=== PATIENT | female | born 1970 | race Hispanic/Latino ===

== ENCOUNTER 2017-07-02 06:00 | Inpatient (IN) | payer BC ==
[2017-07-01 17:13] LABS: BASOPHILS % (AUTO) 0.9 % (0.0-5.0); EOSINOPHILS % (AUTO) 9.2 % (0.0-8.0); HEMATOCRIT 35.5 % (36-48); LYMPHOCYTES % (AUTO) 41.7 % (21.0-51.0); MEAN CORPUSCULAR HEMOGLOBIN 24.9 pg (27.0-33.0); MEAN CORPUSCULAR HGB CONC 32.2 g/dL (32.0-36.0); MEAN CORPUSCULAR VOLUME 77.5 fL (79-99); MONOCYTES % (AUTO) 8.3 % (3.0-13.0); NEUTROPHILS % (AUTO) 39.9 % (40.0-77.0); PLATELET COUNT (AUTO) 357 K/uL (130-400); RED BLOOD CELL COUNT(AUTO) 4.57 MIL/uL (4.00-5.50); RED CELL DISTRIBUTION WIDTH 16.4 % (11.0-15.5); WHITE BLOOD COUNT (AUTO) 9.1 K/uL (4.8-10.8)
[2017-07-01 17:41] VITALS: BP 112/61
[2017-07-02] VITALS (22 sets, daily range): BP systolic 84–113; BP diastolic 50–90
[~2017-07-02] VITALS: Ht 149.9 cm; Wt 58.8 kg
[2017-07-02] MEDS ORDERED: CALDOLOR 800MG+NS 250ML 250 ML IV ONE (09:16)
[2017-07-02] MEDS ORDERED: LACTATED RINGERS 1000ML 1,000 ML IV ONE (09:16)
[2017-07-02] MEDS: CEFAZOLIN SODIUM 1 GM VIAL ONE ×2 (09:30→14:20)
[2017-07-02] MEDS ORDERED: CITA-107 PO (09:33)
[2017-07-02] MEDS ORDERED: BUPIVACAINE/PF 0.25% 30ML VIAL IJ ONE (12:38)
[2017-07-02] MEDS ORDERED: SULFANILAMIDE 120 GM TUBE VG ONE (13:03)
[2017-07-02] MEDS ORDERED: LIDOCAINE HCL/EPINEPHRINE 50 ML VIAL IJ ONE (13:03)
[2017-07-02] MEDS ORDERED: LIDOCAINE PF 2% 5ML ABBOJECT ONE (14:01)
[2017-07-02] MEDS ORDERED: ROCURONIUM BROMIDE 10MG/1ML 5ML VL ONE (14:01)
[2017-07-02] MEDS ORDERED: PROPOFOL 10 MG/ML 20ML VIAL IV ONE (14:02)
[2017-07-02] MEDS ORDERED: MIDAZOLAM HCL 1 MG/ML 2ML VIAL ONE (14:02)
[2017-07-02] MEDS ORDERED: FENTANYL CITRATE PF 50 MCG/1 ML 5ML AMP IV ONE (14:02)
[2017-07-02] MEDS ORDERED: GLYCOPYRROLATE 0.2 MG/ML 5 ML VIAL ONE (15:57)
[2017-07-02] MEDS ORDERED: NEOSTIGMINE 5MG/5ML SYR IV ONE (15:57)
[2017-07-02] MEDS ORDERED: BISACODYL 10 MG SUPP.RECT RC PRN (16:00)
[2017-07-02] MEDS ORDERED: SIMETHICONE 80 MG TAB.CHEW PO PRN (16:00)
[2017-07-02] MEDS ORDERED: MEPERIDINE-PF 75 MG/ML SYG IM PRN (16:00)
[2017-07-02] MEDS ORDERED: MEPERIDINE-PF 25 MG/ML SYG ONE (16:22)
[2017-07-02] MEDS ORDERED: MEPERIDINE-PF 75 MG/ML SYG ONE (17:58)
[2017-07-02] MEDS: PROMETHAZINE HCL 25 MG/ML 1ML AMPULE IM PRN ×2 (18:10→23:53)
[2017-07-02] MEDS: DEXTROSE 5 %-0.45 % NACL 1,000 ML IV PRN (18:38)
[2017-07-02] MEDS: CEFAZOLIN SODIUM 1 GM VIAL IVP SCH (21:26)
[2017-07-02] MEDS ORDERED: CEFAZOLIN 2GM / 50 ML 50 ML IV SCH (22:00)
[2017-07-02] MEDS: CALDOLOR 800MG+NS 250ML 250 ML IVPB SCH (23:53)
[2017-07-03] MEDS: DEXTROSE 5 %-0.45 % NACL 1,000 ML IV PRN ×2 (00:01→10:59)
[2017-07-03] MEDS: ACETAMINOPHEN-CODEINE 300/30MG TAB PO PRN ×2 (02:29→12:15)
[2017-07-03 04:05] VITALS: BP 87/55
[2017-07-03] MEDS: CEFAZOLIN SODIUM 1 GM VIAL IVP SCH (05:56)
[2017-07-03 06:49] LABS: HEMATOCRIT 28.1 % (36-48); MEAN CORPUSCULAR HEMOGLOBIN 24.4 pg (27.0-33.0); MEAN CORPUSCULAR HGB CONC 31.1 g/dL (32.0-36.0); MEAN CORPUSCULAR VOLUME 78.4 fL (79-99); PLATELET COUNT (AUTO) 265 K/uL (130-400); RED BLOOD CELL COUNT(AUTO) 3.59 MIL/uL (4.00-5.50); RED CELL DISTRIBUTION WIDTH 16.2 % (11.0-15.5); WHITE BLOOD COUNT (AUTO) 12.1 K/uL (4.8-10.8)
[2017-07-03 07:34] VITALS: BP 90/58
[2017-07-03] MEDS: CALDOLOR 800MG+NS 250ML 250 ML IVPB SCH (07:59)
[2017-07-03] MEDS ORDERED: ESTRADIOL 0.1 MG/24 HR PATCH (WEEKLY) TD SCH (11:36)
[2017-07-03 11:51] VITALS: BP 88/54
[2017-07-03 15:34] VITALS: BP 86/51
[2017-07-03] MEDS: IBUPROFEN 800 MG TAB PO SCH ×2 (15:56→23:55)
[2017-07-03 19:25] VITALS: BP 102/57
[2017-07-03] MEDS: DOCUSATE SODIUM 100 MG CAP PO PRN (21:26)
[2017-07-03] MEDS: NITROFURANTOIN MONOHYD/M-CRYST 100 MG CAPSULE PO SCH (21:26)
[2017-07-03 23:55] VITALS: BP 88/50
[2017-07-04 04:02] VITALS: BP 94/61
[2017-07-04] MEDS: ACETAMINOPHEN-CODEINE 300/30MG TAB PO PRN (06:57)
[2017-07-04 07:00] LABS: BASOPHILS % (AUTO) 0.2 % (0.0-5.0); EOSINOPHILS % (AUTO) 13.3 % (0.0-8.0); HEMATOCRIT 26.3 % (36-48); LYMPHOCYTES % (AUTO) 23.2 % (21.0-51.0); MEAN CORPUSCULAR HEMOGLOBIN 26.2 pg (27.0-33.0); MEAN CORPUSCULAR HGB CONC 33.6 g/dL (32.0-36.0); MONOCYTES % (AUTO) 8.7 % (3.0-13.0); NEUTROPHILS % (AUTO) 54.6 % (40.0-77.0); PLATELET COUNT (AUTO) 254 K/uL (130-400); RED BLOOD CELL COUNT(AUTO) 3.37 MIL/uL (4.00-5.50); RED CELL DISTRIBUTION WIDTH 16.3 % (11.0-15.5); WHITE BLOOD COUNT (AUTO) 10.5 K/uL (4.8-10.8)
[2017-07-04 07:45] VITALS: BP 106/60
[2017-07-04] MEDS: NITROFURANTOIN MONOHYD/M-CRYST 100 MG CAPSULE PO SCH (08:06)
[2017-07-04] MEDS: DOCUSATE SODIUM 100 MG CAP PO PRN (08:06)
[2017-07-04] MEDS: IBUPROFEN 800 MG TAB PO SCH (08:08)
== END 2017-07-04 10:35 | disposition home or self-care (01) | DRG 743 ==
LOC: DAHIP 08:21 → EDSTATUS 11:20 → WSH 17:19
PROC: 0UT9FZZ Resection of Uterus, Via Natural or Artificial Opening With Percutaneous Endoscopic Assistance (ICD-10-PCS; 2017-07-02)
PROC: 0UT2FZZ Resection of Bilateral Ovaries, Via Natural or Artificial Opening With Percutaneous Endoscopic Assistance (ICD-10-PCS; principal; 2017-07-02 14:05)
PROC: 0UT7FZZ Resection of Bilateral Fallopian Tubes, Via Natural or Artificial Opening With Percutaneous Endoscopic Assistance (ICD-10-PCS; 2017-07-02 14:05)
DX: N83.209 Unspecified ovarian cyst, unspecified side (principal); F32.9 Major depressive disorder, single episode, unspecified; F41.9 Anxiety disorder, unspecified; Z85.43 Personal history of malignant neoplasm of ovary
CPT/HCPCS: 36415; 84703; 85025; 85027; 86850; 86900; 86901; 88104; 88305; 88309; A4218; A4314; A4344; A4354; J0690; J1741; J2001; J2175; J2250; J2550; J2704; J2710; J3010; J3490; J7120

== ENCOUNTER 2017-07-11 22:25 | Emergency (ER) | payer BC ==
[~2017-07-11 22:25] MED LIST: CITA-107 PO
== END 2017-07-11 23:01 | disposition home or self-care (01) ==
LOC: EDH 22:25
DX: T83.098A Other mechanical complication of other urinary catheter, initial encounter (principal); Z90.710 Acquired absence of both cervix and uterus
CPT/HCPCS: 51702

== ENCOUNTER → 2024-05-03 | Outpatient (CLI) | payer OTHER | END | disposition home or self-care (01) | LOC: RAH 15:51 | PROVIDERS: ATTEND Family Medicine | DX: Z13.6 Encounter for screening for cardiovascular disorders (principal) | CPT/HCPCS: 75571 ==

== ENCOUNTER 2024-09-16 12:57 | Emergency (ER) | payer BC, OTHER ==
[~2024-09-16] VITALS: Ht 149.9 cm; Wt 59.0 kg
--- NOTE | 2024-09-16 13:05 | ERN ---
ED Note History of Present Illness Stated Complaint: UPPER ABD PAIN X 2DAYS Time Seen by MD: 12:59 Dictation: PATIENT IS A 54-YEAR-OLD FEMALE COMING IN TODAY WITH EPIGASTRIC PAIN THAT RADIATES AROUND TO HER FLANK WITH DIARRHEA FOR THE LAST 2-3 DAYS. NO FEVER NO CHILLS. SHE STATES SHE IS ALSO HAVING BURNING URINATION STARTED YESTERDAY. SHE STATES HE TOOK HIM IMODIUM TODAY BUT IT MADE HER ABDOMEN FEEL BLOATED. SHE STAT ES SHE CALLED HER PRIMARY CARE DOCTOR ADVISED HER TO GO TO THE EMERGENCY ROOM. Allergies: Coded Allergies: latex (Unverified Allergy, Severe, ITCHING, 11/17/12) No Known Drug Allergies (Unverified Allergy, Unknown, 07/03/17) Uncoded Allergies: NKDA (Allergy, Unknown, 07/03/17) PATIENT DENIES ANY LATEX ALLERGY Home Meds Reported Medications Citalopram Hydrobromide (Citalopram HBr) 20 Mg Tablet, 20 MG PO HS, TAB 07/02/17 Past Medical History History: Not Applicable RN Note Reviewed/Agreed w/PFSH: Yes Review of System Dictation CONSTITUTIONAL: NEGATIVE EXCEPT FOR HPI HEAD/FACE: NEGATIVE EXCEPT FOR HPI EENT: NEGATIVE EXCEPT FOR HPI RESPIRATORY: NEGATIVE EXCEPT FOR HPI GASTROINTESTINAL/ABDOMINAL: NEGATIVE EXCEPT FOR HPI EPIGASTRIC PAIN THAT RADIATES TO RIGHT FLANK WITH DIARRHEA FOR THREE DAYS/BLOATING GENITOURINARY: NEGATIVE EXCEPT FOR HPI MUSCULOSKELETAL: NEGATIVE EXCEPT FOR HPI INTEGUMENTARY: NEGATIVE EXCEPT FOR HPI NEUROLOGICAL/PSYCH: NEGATIVE EXCEPT FOR HPI HEMATOLOGIC/LYMPHATIC: NEGATIVE EXCEPT FOR HPI ALL SYSTEMS NEGATIVE, EXCEPT NOTED ABOVE. 13 POINT REVIEW OF SYSTEMS ASSESSED AND ALL NEGATIVE EXCEPT FOR ABOVE. Initial Vital Sign VS Vital Signs Date Time Temp Pulse Resp B/P (MAP) Pulse Ox O2 Delivery O2 Flow Rate FiO2 09/16/24 13:24 97.9 56 16 114/82 99 Room Air 0 Physical Exam Dictation VITAL SIGNS REVIEWED GENERAL APPEARANCE: ALERT, ORIENTED X 3, NO ACUTE DISTRESS, WELL DEVELOPED, NOURISHED. HEAD AND FACE: NON-TRAUMATIC. EYES: PERRL, PINK CONJUNCTIVAS, EYELID NO TRAUMA, ANTERIOR CHAMBER WITH ARCUS SENILIS. EARS: PINNAS INTACT AND NO SIGNS OF TRAUMA OR ERYTHEMA EAR CANALS CLEAR AND NO DISCHARGE TM NO ERYTHEMA NOSE: NO DISCHARGE, NO BLEEDING. OROPHARYNX: MOUTH NORMAL, TONGUE PINK, PHARYNX CLEAR,NO ERYTHEMA, TONSILS NO EXUDATES, NO ABSCESSES NOTED, MUCOUS MEMBRANE MOIST NECK: SUPPLE, NON-TENDER, NO THYROMEGALY, NO MASSES, NO JVD, NO BRUITS BREAST:DEFERRED CHEST:NO TENDERNESS, NO CREPITUS, NO PARADOXICAL MOVEMENT, NO RETRACTIONS LUNGS:CLEAR, WELL-VENTILATED, SYMMETRIC, NO RALES, NO WHEEZING, NO RHONCHI, NO STRIDOR, GOOD BREATH SOUNDS BILATERALLY HEART: REGULAR RATE, REGULAR RHYTHM, NO MURMUR, NO GALLOPS VASCULAR: NO PERIPHERAL EDEMA, ABDOMEN: SOFT, POSITIVE BOWEL SOUNDS, NONDISTENDED, NO GUARDING, MODERATE EPIGASTRIC TENDERNESS WITH PALPATION, NO REBOUND, NO MASSES NO HEPATOMEGALY, NO SPLENOMEGALY, NO BURROWS'S SIGN, NO HERNIAS. NEGATIVE CVAT BILATERALLY RECTAL: DEFERRED GENITAL: DEFERRED NEUROLOGICAL: NORMAL SPEECH, MOTOR FUNCTION INTACT, SENSORY FUNCTION INTACT MUSCULOSKELETAL: NECK NONTENDER, FULL RANGE OF MOTION, BACK NONTENDER, FULL RANGE OF MOTION, EXTREMITIES: NONTENDER, FULL RANGE OF MOTION SKIN: COLOR PINK, DRY, NO TURGOR, NO RASH, NO LACERATIONS, NO ABRASIONS, NO CONTUSIONS. LYMPHATIC: DEFERRED Results (Laboratory/Radiology) Laboratory/Radiology Laboratory Tests Test 09/16/24 13:13 09/16/24 13:16 Urine Color YELLOW (YELLOW) Urine Appearance HAZY (CLEAR) Urine pH 6.0 (5.0-8.0) Urine Specific [place] >=1.030 (1.001-1.031) Urine Protein 30 mg/dL (NEGATIVE) H Urine Glucose (UA) NEGATIVE mg/dL (NEGATIVE) Urine Ketones NEGATIVE mg/dL (NEGATIVE) Urine Occult Blood MODERATE (NEGATIVE) H Urine Nitrate NEGATIVE (NEGATIVE) Urine Bilirubin NEGATIVE mg/dL (NEGATIVE) Urine Urobilinogen 0.2 mg/dL (0.2-1.0) Urine Leukocyte Esterase SMALL Porf[place]io/uL (NEGATIVE) H Urine RBC 2-5 /HPF (0-1) H Urine WBC 11-25 /HPF (0-1) H Urine Squamous Epithelial Cells Rare /HPF (0-2) Urine Calcium Oxalate Crystals Rare /LPF (None Seen) H Urine Bacteria Few /HPF (None Seen) White Blood Count 9.6 K/uL (4.8-10.8) Red Blood Count 4.74 MIL/uL (4.00-5.50) Hemoglobin 13.8 g/dL (12.0-16.0) Hematocrit 43.0 % (36-48) Mean Corpuscular Volume 90.7 fL (79-99) Mean Corpuscular Hemoglobin 29.1 pg (27.0-33.0) Mean Corpuscular Hemoglobin Concent 32.1 g/dL (32.0-36.0) Red Cell Distribution Width 12.8 % (11.0-15.5) Platelet Count 344 K/uL (130-400) Mean Platelet Volume 9.7 fL (7.5-10.5) Immature Granulocyte % (Auto) 0.2 % (0-1) Neutrophils (%) (Auto) 45.2 % (40.0-77.0) Lymphocytes (%) (Auto) 41.5 % (21.0-51.0) Monocytes (%) (Auto) 11.5 % (3.0-13.0) Eosinophils (%) (Auto) 0.9 % (0.0-8.0) Basophils (%) (Auto) 0.7 % (0.0-5.0) Neutrophils # (Auto) 4.3 K/uL (1.8-7.7) Lymphocytes # (Auto) 4.0 K/uL (1.0-4.8) Monocytes # (Auto) 1.1 K/uL (0.1-1.0) H Eosinophils # (Auto) 0.09 K/uL (0.00-0.70) Basophils # (Auto) 0.07 K/uL (0.00-0.20) Absolute Immature Granulocyte (auto 0.02 K/uL (0-1) Nucleated Red Blood Cells 0.0 % (0.0-0.19) Sodium Level 134 mmol/L (136-145) L Potassium Level 3.2 mmol/L (3.5-5.1) L Chloride Level 99 mmol/L (101-111) L Carbon Dioxide Level 25 mmol/L (21-32) Blood Urea Nitrogen 16 mg/dL (7-18) Creatinine 0.7 mg/dL (0.5-1.0) Glomerular Filtration Rate Calc 101 mL/min (>90) Random Glucose 113 mg/dL (70-105) H Total Calcium 9.2 mg/dL (8.5-10.1) Lipase 63 U/L (16-77) Signed PATIENT: MANUEL AGUIRRE MR#: [id number] : 1969 SEX: F AGE: 54 LOCATION: [facility] ORDER [id number] STATUS: REG ER REPORT#: [id number] SERVICE 1346 REASON: LEFT FLANK PAIN THAT RADIATES TO LEFT UPPER AND LOWER QUADRANT ORDERING PHYSICIAN: KUSUM PRUITT NP PROCEDURE: ABD PEL WO - CT ABDOMEN/PELVIS W/O CONTRAST CT ABDOMEN/PELVIS W/O CONTRAST HISTORY: Left flank pain COMPARISON: None TECHNIQUE: Multiple sequential axial images of the abdomen and pelvis were obtained from the dome of the diaphragm through symphysis pubis. Patient was not given contrast through intravenous route. Oral contrast was not given. FINDINGS: No pleural effusion is seen bilaterally. There is no evidence of parenchymal disease or pulmonary nodule of the visualized lower lungs. Degenerative changes of the thoracolumbar spine are present. The heart is not enlarged. Postcholecystectomy changes are seen. The liver, spleen, adrenal glands and pancreas are unremarkable. There is no evidence of hydronephrosis bilaterally. 3 mm right renal pelvic stone is seen. There is fluid-filled small bowel loops and colon may be related to enterocolitis. Fecal material is seen in the colon. There are normal size retroperitoneal and mesenteric lymph nodes. No ascites is seen. No CT evidence of acute sinusitis is seen. Pelvic sidewalls are symmetric bilaterally. Bladder is poorly distended. IMPRESSION: 1. 3 mm right renal pelvic stone without hydronephrosis. Fluid-filled small bowel loops and colon may be related to enterocolitis. Labs Reviewed?: Yes ED Course ED Course Orders Procedure Category Date Status Time Cbc With Differential LAB 09/16/24 Complete 13:02 Urinalysis Profile LAB 09/16/24 Complete 13:02 0.9%Nacl 1000ml (Ns PHA 09/16/24 Complete 1000ml) 13:30 Morphine 2mg Syg PHA 09/16/24 Complete (Morphine 2mg Syg) 13:30 Ondansetron 4mg Inj PHA 09/16/24 Complete (Zofran 4mg Inj) 13:30 Lipase LAB 09/16/24 Complete 13:02 Basic Metabolic Panel LAB 09/16/24 Complete 13:02 Potassium Bicarb/Cit PHA 09/16/24 Complete Ac 25meq (K-Lyte Ta 14:00 Culture Urine NUHA 09/16/24 In Process 13:37 Ct Abdomen/Pelvis W/O CT 09/16/24 Resulted Contrast 13:49 Ceftriaxone 1g Vial PHA 09/16/24 Complete (Rocephine 1g Inj) 15:00 Ketorolac PHA 09/16/24 Complete Tromethamine 30mg/Ml 15:00 Current Medications Medications (Trade) Dose Ordered Sig/[place] Route PRN Reason Start Time Stop Time Status Last Admin Dose Admin Ceftriaxone Sodium (ROCEphine 1G INJ) 1 gm ONCE ONCE IVP 09/16/24 15:00 09/16/24 15:01 DC Ketorolac Tromethamine (toRADol) 30 mg ONCE ONCE IVP 09/16/24 15:00 09/16/24 15:01 DC Morphine Sulfate (morPHINE 2MG SYG) 2 mg ONCE ONCE IVP 09/16/24 13:30 09/16/24 13:31 DC 09/16/24 14:04 Ondansetron HCl (zoFRAN 4MG INJ) 4 mg ONCE ONCE IVP 09/16/24 13:30 09/16/24 13:31 DC 09/16/24 14:03 Potassium Bicarbonate (K-Lyte Tablet Eff 25 Meq Tablet.eff) 25 meq ONCE ONCE PO 09/16/24 14:00 09/16/24 14:01 DC 09/16/24 14:03 Sodium Chloride 1,000 ml @ 0 mls/hr ONCE ONCE IV 09/16/24 13:30 09/16/24 13:31 DC 09/16/24 14:03 Vital Signs Date Time Temp Pulse Resp B/P (MAP) Pulse Ox O2 Delivery O2 Flow Rate FiO2 09/16/24 13:24 97.9 56 16 114/82 99 Room Air 0 1532/PATIENT STATES PAIN MARKEDLY REDUCED AFTER TREATMENT. DISCHARGED HOME WITH DIAGNOSIS OF VIRAL GASTROENTERITIS LEFT RENAL STONE, HYPOKALEMIA DEHYDRATION. WE WILL BE TREATED WITH BENTYL AND FLAGYL TOLD TO SEE HER PRIMARY CARE DOCTOR FOR FOLLOW UP. Medical Decision Making MDM MEDICAL DISCHARGE MAKING BASED ON BASIC LABS FOR ABDOMINAL PAIN TO INCLUDE CT BECAUSE OF LEFT FLANK PAIN RADIATING LEFT LOWER QUADRANT PATIENT HAS A ACUTE UTI WITH HEMATURIA HYPOKALEMIA, POTASSIUM REPLACED DEHYDRATION WITH 1 L FLUIDS GIVEN. PATIENT DISCHARGED HOME WITH FLAGYL AND BENTYL TOLD FOLLOW UP WITH HER PRIMARY CARE DOCTOR AND CLEAR LIQUID DIET FOR THE NEXT 18 HOURS. DX & DISP Disposition: Discharge Departure Impression: Primary Impression: Viral gastroenteritis Additional Impressions: Hyponatremia, Hypokalemia, Dehydration, Hyperglycemia, Abdominal cramps, Calculus of left kidney Condition: Stable Scripts Dicyclomine HCl (Bentyl) 20 Mg Tab 20 MG PO Q6HPRN PRN for ABDOMINAL CRAMPING, #20 TAB Prov: KUSUM PRUITT NP 09/16/24 Levofloxacin (Levofloxacin) 500 Mg Tablet 1 TAB PO DAILY for 7 Days, #7 TAB 0 Refills Prov: KUSUM PRUITT NP 09/16/24 Metronidazole (Metronidazole) 500 Mg Tablet 1 TAB PO TID for 7 Days, #21 TAB 0 Refills Prov: KUSUM PRUITT NP 09/16/24 Additional Instructions: FOLLOW-UP WITH PRIMARY CARE PROVIDER IN 1 TO 2 DAYS. TAKE MEDICATIONS DIRECTED HERE IN THE EMERGENCY ROOM. OKAY TO CONTINUE HOME MEDICATIONS UNLESS OTHERWISE DISCUSSED DURING YOUR VISIT IN THE EMERGENCY ROOM TODAY. RETURN TO YOUR NEAREST EMERGENCY ROOM IF SYMPTOMS WORSEN OR IF THERE IS NO IMPROVEMENT. CALL 911 IF YOU NEED IMMEDIATE ASSISTANCE. TAKE TYLENOL OR MOTRIN [id number] NEEDED AND IF NO CONTRAINDICATIONS ARE PRESENT. INCREASE ORAL HYDRATION. A WOUND CULTURE OR URINE CULTURE WAS ORDERED HERE IN THE EMERGENCY ROOM DEPARTMENT PLEASE FOLLOW-UP WITH PRIMARY CARE PROVIDER AND ADVISE THEM TO GET REPEAT PORTS FROM OUR FACILITY. IF YOU HAD ANY SUSY WRAP/SPLINTS THAT WERE APPLIED HERE, PLEASE DO NOT REMOVE THEM UNTIL YOU SEE YOUR PRIMARY CARE OR SPECIALTY. TAKE ANTIBIOTICS DIRECTED UNTIL GONE. TAKE BENTYL DIRECTED FOR CRAMPING. CLEAR LIQUID DIET FOR THE NEXT 18 HOURS AND THEN ADVANCE DIET SLOWLY TO REGULAR STARTING TOMORROW AFTERNOON. FOLLOW UP WITH YOUR PRIMARY CARE DOCTOR IN THE NEXT 1-2 DAYS OR RETURN TO THE EMERGENCY ROOM IF CONDITION GETS WORSE Referrals: RICHAR GUTIERREZ (PCP) Time of Disposition: 15:39 I have reviewed the case, and I agree with, Diagnosis and Plan KUSUM PRUITT NP Sep 16, 2024 13:05
[2024-09-16 13:26] LABS: BASOPHILS # (AUTO) 0.07 K/uL (0.00-0.20); BASOPHILS % (AUTO) 0.7 % (0.0-5.0); EOSINOPHILS # (AUTO) 0.09 K/uL (0.00-0.70); EOSINOPHILS % (AUTO) 0.9 % (0.0-8.0); IMMATURE GRANULOCYTE ABSOLUTE 0.02 K/uL (0-1); LYMPHOCYTES % (AUTO) 41.5 % (21.0-51.0); MEAN CORPUSCULAR HEMOGLOBIN 29.1 pg (27.0-33.0); MEAN CORPUSCULAR HGB CONC 32.1 g/dL (32.0-36.0); MEAN CORPUSCULAR VOLUME 90.7 fL (79-99); MONOCYTES # (AUTO) 1.1 K/uL (0.1-1.0); MONOCYTES % (AUTO) 11.5 % (3.0-13.0); NEUTROPHILS # (AUTO) 4.3 K/uL (1.8-7.7); NEUTROPHILS % (AUTO) 45.2 % (40.0-77.0); PLATELET COUNT (AUTO) 344 K/uL (130-400); RED BLOOD CELL COUNT(AUTO) 4.74 MIL/uL (4.00-5.50); RED CELL DISTRIBUTION WIDTH 12.8 % (11.0-15.5); WHITE BLOOD COUNT (AUTO) 9.6 K/uL (4.8-10.8)
[2024-09-16 13:27] LABS: BILIRUBIN,URINE NEGATIVE (NEGATIVE); COLOR,URINE YELLOW (YELLOW); GLUCOSE, URINE (UA) NEGATIVE (NEGATIVE); KETONES,URINE NEGATIVE (NEGATIVE); LEUKOCYTE ESTERASE ,URINE SMALL Leu/uL (NEGATIVE); NITRATE,URINE NEGATIVE (NEGATIVE); OCCULT BLOOD,URINE MODERATE (NEGATIVE); PROTEIN,URINE 30 mg/dL (NEGATIVE); UROBILINOGEN,URINE 0.2 mg/dL (0.2-1.0)
[2024-09-16 13:30] LABS: ADD UA MICROSCOPIC YES; APPEARANCE,URINE HAZY (CLEAR)
[2024-09-16 13:32] LABS: CREATININE 0.7 mg/dL (0.5-1.0); POTASSIUM 3.2 mmol/L (3.5-5.1)
[2024-09-16 13:33] LABS: CALCIUM OXALATE CRYSTALS,UR Rare /LPF (None Seen)
[2024-09-16 13:34] LABS: BACTERIA,URINE Few /HPF (None Seen)
[2024-09-16 13:36] LABS: SQUAMOUS EPITHELIAL CELL,UR Rare /HPF (0-2)
[2024-09-16] MEDS: ondanSETRON 4MG INJ IVP ONE (14:03)
[2024-09-16] MEDS: PoTASSium BIcarbonate/CIT AC 25 MEQ TABLET.EFF PO ONE (14:03)
[2024-09-16] MEDS: 0.9%NACL 1000ML 1,000 ML IV ONE (14:03)
[2024-09-16] MEDS: morPHINE 2 MG SYG IVP ONE (14:04)
--- NOTE | 2024-09-16 14:54 | HMCIMG ---
CT ABDOMEN/PELVIS W/O CONTRAST HISTORY: Left flank pain COMPARISON: None TECHNIQUE: Multiple sequential axial images of the abdomen and pelvis were obtained from the dome of the diaphragm through symphysis pubis. Patient was not given contrast through intravenous route. Oral contrast was not given. FINDINGS: No pleural effusion is seen bilaterally. There is no evidence of parenchymal disease or pulmonary nodule of the visualized lower lungs. Degenerative changes of the thoracolumbar spine are present. The heart is not enlarged. Postcholecystectomy changes are seen. The liver, spleen, adrenal glands and pancreas are unremarkable. There is no evidence of hydronephrosis bilaterally. 3 mm right renal pelvic stone is seen. There is fluid-filled small bowel loops and colon may be related to enterocolitis. Fecal material is seen in the colon. There are normal size retroperitoneal and mesenteric lymph nodes. No ascites is seen. No CT evidence of acute sinusitis is seen. Pelvic sidewalls are symmetric bilaterally. Bladder is poorly distended. IMPRESSION: 1. 3 mm right renal pelvic stone without hydronephrosis. Fluid-filled small bowel loops and colon may be related to enterocolitis. CT was performed with one or more following dose reduction techniques: automated exposure control, adjustment of the mA and kv according to patient's size, or use of a iterative reconstruction technique.
[2024-09-16] MEDS: cefTRIAXone 1G VIAL IVP ONE (15:36)
[2024-09-16] MEDS: ketOROlac 30MG VIAL (30MG/ML) IVP ONE (15:37)
[2024-09-16] MEDS ORDERED: METR-172 PO (15:41)
[2024-09-16] MEDS ORDERED: LEVO-70 PO (15:41)
[2024-09-16] MEDS ORDERED: DICY20TA2 PO (15:41)
[2024-09-16 15:44] VITALS: BP 115/79; PULSE 60; RESP 16; TEMP 97.9; O2SAT 99
== END 2024-09-16 15:53 | disposition home or self-care (01) ==
LOC: EDH 12:57
DX: A08.4 Viral intestinal infection, unspecified (principal); E86.0 Dehydration; E87.1 Hypo-osmolality and hyponatremia; E87.6 Hypokalemia; N20.0 Calculus of kidney; Z79.899 Other long term (current) drug therapy; Z91.040 Latex allergy status
CPT/HCPCS: 99284; 74176; 96374; 96375; 96361; 80048; 83690; 85025; 87086; 81001; 36415; J1885; J2270; J7030; J0696; J2405